=== PATIENT | male | born 1980 | race Hispanic/Latino ===

== ENCOUNTER 2021-06-28 15:43 | Emergency (ER) | payer SELFPAY ==
--- NOTE | 2021-06-28 16:01 | Emergency Department Report ---
ED Psych HPI - General Chief Complaint: Psych Stated Complaint: SUICIDAL IDEATIONS Time Seen by Provider: 06/28/21 15:56 Source: patient, EMS Mode of arrival: Ambulatory - History of Present Illness Initial Comments: Patient is 40 years old male with no significant past medical history. Patient brought to the emergency room via EMS from home for mental health evaluation. EMS stated that police was arrived before them. EMS stated that patient friend called police and informed them that he has been depressed and has not been seen recently and they need to check on him. EMS reported that when police arrived to his home they asked him if he wanted to kill himself he replied to them that if he can kill me that would be great. Upon arrival to the ER patient looks really depressed and pauses for long time before he answer questions. When asked about suicidal ideation patient refused to answer the questions. He denied visual or auditory hallucination. MD Complaint: suicidal ideation, feels depressed -: unknown Associated Psychiatric Symptoms: depression, suicidal ideation Quality: constant Associated Symptoms: denies other symptoms Treatments Prior to Arrival: none - Related Data Previous Rx's Medication Instructions Recorded Last Taken Type Escitalopram Oxalate [Lexapro] 5 mg PO DAILY 30 Days #30 06/29/21 Unknown Rx traZODone [Desyrel] 50 mg PO QHS 30 Days #30 tab 06/29/21 Unknown Rx Allergies Allergy/AdvReac Type Severity Reaction Status Date / Time No Known Allergies Allergy Verified 06/29/21 12:15 ED Review of Systems ROS: Stated complaint: SUICIDAL IDEATIONS Other details as noted in HPI Comment: All other systems reviewed and negative Constitutional: denies: chills, fever Respiratory: denies: cough, shortness of breath, SOB with exertion, SOB at rest Cardiovascular: denies: chest pain, palpitations Gastrointestinal: denies: abdominal pain, nausea, vomiting, diarrhea, constipation, hematemesis, melena, hematochezia Musculoskeletal: denies: back pain Neurological: denies: headache, weakness, numbness, paresthesias, confusion, abnormal gait Psychiatric: depression. denies: auditory hallucinations, visual hallucinations, homicidal thoughts ED Past Medical Hx - Medications Home Medications: Home Medications Medication Instructions Recorded Confirmed Last Taken Type Escitalopram Oxalate [Lexapro] 5 mg PO DAILY 30 Days #30 06/29/21 Unknown Rx traZODone [Desyrel] 50 mg PO QHS 30 Days #30 tab 04/19/22 Unknown Rx ED Physical Exam - General Limitations: No Limitations General appearance: alert, other (looks depressed) - Head Head exam: Present: atraumatic, normocephalic, normal inspection - Eye Eye exam: Present: normal appearance - ENT ENT exam: Present: normal exam, normal orophraynx, mucous membranes moist - Neck Neck exam: Present: normal inspection, full ROM. Absent: tenderness, meningismus - Respiratory Respiratory exam: Present: normal lung sounds bilaterally - Cardiovascular Cardiovascular Exam: Present: regular rate, normal rhythm, normal heart sounds - GI/Abdominal GI/Abdominal exam: Present: soft, normal bowel sounds. Absent: distended, tenderness, guarding, rebound, rigid, organomegaly, mass, bruit, pulsatile mass, hernia - Extremities Exam Extremities exam: Present: normal inspection, full ROM, normal capillary refill. Absent: tenderness - Back Exam Back exam: Present: normal inspection, full ROM. Absent: CVA tenderness (R), CVA tenderness (L) - Neurological Exam Neurological exam: Present: alert, oriented X3, CN II-XII intact, normal gait, reflexes normal. Absent: motor sensory deficit - Psychiatric Psychiatric exam: Present: depressed. Absent: homicidal ideation - Skin Skin exam: Present: warm, intact, normal color ED Course Vital Signs 06/28/21 06/28/21 06/29/21 15:48 22:00 06:04 Temperature 98.4 F 98.6 F Pulse Rate 81 71 Respiratory 16 18 18 Rate Blood Pressure 147/91 129/82 [Left] O2 Sat by Pulse 99 96 97 Oximetry 06/29/21 06/29/21 06/29/21 09:03 10:00 14:30 Temperature 98.2 F 98.2 F Pulse Rate 68 72 Respiratory 18 16 Rate Blood Pressure 140/90 140/88 [Left] O2 Sat by Pulse 98 99 99 Oximetry ED Medical Decision Making - Lab Data Result diagrams: 06/28/21 17:06 06/28/21 17:06 - Medical Decision Making Patient is 40 years old male with no significant past medical history. Patient brought to the emergency room via EMS from home for mental health evaluation. EMS stated that police was arrived before them. EMS stated that patient friend called police and informed them that he has been depressed and has not been seen recently and they need to check on him. EMS reported that when police arrived to his home they asked him if he wanted to kill himself he replied to them that if he can kill me that would be great. Upon arrival to the ER patient looks really depressed and pauses for long time before he answer questions. When asked about suicidal ideation patient refused to answer the questions. He denied visual or auditory hallucination. Labs reviewed and is unremarkable however urinalysis and UDS still pending. Patient is medically cleared to be evaluated by psychiatric team. Critical care attestation.: If time is entered above; I have spent that time in minutes in the direct care of this critically ill patient, excluding procedure time. ED Disposition Clinical Impression: Suicidal ideation, Depression, Elevated glucose level Disposition: HOME / SELF CARE / HOMELESS Is pt being admited?: No Condition: Stable Instructions: Living With Depression, Suicidal Feelings: How to Help Yourself, Screening for Type 2 Diabetes Additional Instructions: Your glucose level was elevated during your evaluation today. Follow-up with a primary care doctor for evaluation and screening for diabetes. Follow-up with the psychiatric resources provided Professional and Agency Contacts To help [facility](03/10) [place] Crisis Line: Suicide Prevention Line: Crisis Text Line: Text START to 511887 Emergency: 911 Outpatient COMMUNITY Behavioral Health Resources: LUCY: [facility] [address] [place], [place] [address] [facility] [address] [place] [address] HENRIETTA: [facility] - [address] [place] [address] Monday thru Monday - 8am - 5pm SAL[place]: [facility] Address: [address], [place] [address] [facility] Address: [address] [place] [address] Monday thru Monday- 7am-2pm [facility] Address: [address] [place] [address] Monday thru Monday: 8:30AM-5PM OUTPATIENT MENTAL HEALTH RESOURCES [facility], [address], [place] [address] FACUNDO Brock MD: [address] [place] [address] [facility]: [address] [place] [address] [address] [facility] [place] [address] [phone] [facility]: [address] [facility] [address] [place] [address] [facility]: [address] [facility] [address] [facility] [id number] [facility]: [address] [place], [place] Naseem Rodriguez MD: [address] [facility] [id number] [facility]: [address] [place], [place] [id number] [phone] [place] CRISIS AND ACCESS LINE: * The [employer] Program [employer] goal is to take chronically homeless men and help them overcome their barriers, change them as human beings, making them productive and self- sufficient individuals. Each [employer] participant is housed at our facility for up to a year while they participate in transitional work (earning $7.40/hr for 30+ hours per week). All participants renounce dependency and remain drug and alcohol free. Personal support, case management, and workforce training is offered throughout the program. We also provide AA/NA Classes, GED classes, support in obtaining a food mobile driver's licenses, help setting up a bank account, and life skill preparation courses. IF A MAN IS COMMITTED TO BEING CLEAN, TO ADDRESSING THE PAST, AND TO WORKING, WE WILL HELP HIM GET A FIXED WING AIRCRAFT CREW CHIEF JOB, TRANSPORTATION AND PERMANENT HOUSING WITHIN A YEAR. [employer]! [address] [place], [place] [id number] [email or web address] HOMELESS RESOURCES: [facility] NEED HELP? If you are in need of help or know someone who does, please contact us at [email or web address] or call , or come to our offices at [address] [facility], [place] [address], Monday-Monday beginning at 8AM. [facility] Males only Admission at 7am Mon to Mon Address: [address] [place] [address] Client Engagement Center Regular program admission occurs Monday through Monday at 7:00 am and operates on a first come, first serve basis. Because we cant anticipate program availability in advance and program spots are in high demand, we recommend arriving early. Space fills up fast! Next steps can include: Assignment to a [facility] program bed Connection to and placement in a partner program, or Referral to a partner agency [facility]: [facility] Address: [address] [place] [address] How do I join the [facility] housing program? Our housing programs are offered based on availability. If you are looking to participate in our housing program, simply call [phone] to find out if we have available space. Since we do receive many calls, please allow up to 48 hours for one of our housing specialists to return your call. If we do not have vacancies, we suggest calling the [facility] hotline at 211 for additional housing options. [facility] Challenge[facility]ales only Admission at 4:30pm daily Address: [place] [address] [facility] Admission from 8am to 10am Daily No intake until 03/09/20 Address: [place] [address] Transitional Senior Living Providers: Clay Diop [phone] Address: [address] [place] [address] Lisa Benton [phone] [place] [address] Mr. Hopson: [phone] Ronak Corral [phone] Ms. Ricardo: [phone] Cheryl Carter [phone] Ms. Lam [phone] Raymundo Simons [facility] [phone] Ms. Castle: [phone] [facility] [phone] [facility]: [facility] [phone] PC Prescriptions: traZODone [Desyrel] 50 mg PO QHS 30 Days #30 tab Escitalopram Oxalate [Lexapro] 5 mg PO DAILY 30 Days #30 Referrals: [facility] [Provider Group] - 3-5 Days (Primary care) FELIX POWELL MD [Staff Physician] - 3-5 Days (Primary care) JORDON CELESTE MD [Primary Care Provider] - 3-5 Days
[2021-06-28 17:49] LABS: Basophils # (Auto) 0.1 K/mm3 (0.0-0.1); Eosinophils # (Auto) 0.2 K/mm3 (0.0-0.4); Eosinophils % (Auto) 2.8 % (0.0-4.3); Hematocrit 49.3 % (35.5-45.6); Hemoglobin 17.1 gm/dl (11.8-15.2); Lymphocytes # (Auto) 2.6 K/mm3 (1.2-5.4); Lymphocytes % (Auto) 32.2 % (13.4-35.0); Mean Corpuscular HGB Conc 35 % (32-34); Mean Corpuscular Volume 82 fl (84-94); Monocytes # (Auto) 0.6 K/mm3 (0.0-0.8); Monocytes % (Auto) 7.4 % (0.0-7.3); Platelet Count 215 K/mm3 (140-440); Red Blood Count 6.03 M/mm3 (3.65-5.03)
[2021-06-28 18:12] LABS: Alanine Aminotransferase 19 units/L (7-56); Albumin 4.5 g/dL (3.9-5); BUN/Creatinine Ratio 10; Bilirubin,Direct 0.2 mg/dL (0-0.2); Blood Urea Nitrogen 10 mg/dL (9-20); Calcium 9.4 mg/dL (8.4-10.2); Hemolysis Index 5
--- NOTE | 2021-06-29 11:19 | Consultation ---
History of Present Illness - Reason for Consult Consult date: 06/29/21 Reason for consult: mental health evaluation - History of Present Psychiatric Illness The patient is a 40 year old male with unknown psychiatric history. the patient was seen this morning. He present with constricted affect. The states he has been dealing with " all kinds of court stuff and unable to work." He states he was charged with aggravated stalking; he states someone was allegedly leaving toys at his ex home. The patient endorses being depressed but denies any current suicidal/homicidal ideation and denies hallucinations. PAST PSYCHIATRIC HISTORY: Diagnoses: Denies Suicide attempts or Self-harm behavior: Denies Prior psychiatric hospitalizations: Denies Substance Abuse history: Denies Previous psychiatric medications tried: Denies Outpatient treatment: Denies PAST MEDICAL HISTORY: None reported or document Family Psychiatric History: None reported or documented SOCIAL HISTORY Marital Status: Single Living Arrangements: Lives with mother Employment Status: Unemployed Access to guns/weapons: Denies Education: college History of Abuse: Denies Legal History: Yes REVIEW OF SYSTEMS Constitutional: Negative for weight loss ENT: Negative for stridor Respiratory: Negative for cough or hemoptysis All other systems reviewed and are negative MENTAL STATUS EXAMINATION General Appearance and Behavior: Age appropriate, good hygiene, wearing appropriate clothes. distracted, cooperative Cooperation: Psychomotor Behavior: Psychomotor normal Mood: Calm Affect and affective range: congruent with stated mood Thought Process:Goal directed Thought Content: Reality oriented Speech: Normal volume, Regular rate and rhythm Suicidal Ideation: Denies Homicidal Ideation: Denies Hallucinations: Denies Delusions: none elicited Impulse Control: impaired Insight and Judgment: Limited Memory: limited Attention: Distracted Orientation: alert and oriented Assessment and Plan (1) Major depressive disorder Treatment Plan Start Lexapro 5mg po daily Start Trazodone 50mg po QHS Continue home meds Sitter: refer to medical Medical: per primary Disposition:Do not recommend acute psychiatric inpatient treatment. [facility] will provide patient with psychiatric out patient resources. Will sign off. Thanks Case staffed with Dr. Peñaloza Medications and Allergies Medications and Allergies Allergies Allergy/AdvReac Type Severity Reaction Status Date / Time No Known Allergies Allergy Unverified 06/28/21 17:19 Home Medications Medication Instructions Recorded Confirmed Last Taken Type Escitalopram Oxalate [Lexapro] 5 mg PO DAILY 30 Days #30 06/29/21 Unknown Rx traZODone [Desyrel] 50 mg PO QHS 30 Days #30 tab 06/29/21 Unknown Rx Mental Status Exam - Vital signs Last Vital Signs Temp 98.2 F 06/29/21 09:03 Pulse 68 06/29/21 09:03 Resp 18 06/29/21 09:03 BP 140/90 06/29/21 09:03 Pulse Ox 99 06/29/21 10:00 Results Result Diagrams: 06/28/21 17:06 06/28/21 17:06 Abnormal lab results 06/28/21 06/28/21 Range/Units 17:06 17:06 RBC 6.03 H (3.65-5.03) M/mm3 Hgb 17.1 H (11.8-15.2) gm/dl Hct 49.3 H (35.5-45.6) % MCV 82 L (84-94) fl MCHC 35 H (32-34) % RDW 13.0 L (13.2-15.2) % Rabun % (Auto) 7.4 H (0.0-7.3) % Glucose 256 H (75-100) mg/dL All other labs normal.
[2021-06-29] MEDS ORDERED: traZODone 50 MG TAB PO ONE (11:20)
[2021-06-29] MEDS ORDERED: ESCITALOPRAM 10 MG TAB PO SCH (12:00)
--- NOTE | 2021-06-29 13:57 | Emergency Department Report ---
Blank Doc - Documentation Documentation: 40-year-old male with major depression disorder cleared by mental [facility] for d ischarge. Patient does have hyperglycemia without documented history of diabetes. Outpatient follow-up with PMD advised
[2021-06-29 14:32] VITALS: BP 140/88
== END 2021-06-29 14:32 | disposition home or self-care (01) ==
LOC: ED 15:43 → EEVIPCON 15:43 → ED 06-29 14:32
DX: R45.851 Suicidal ideations (principal); F32.A Depression, unspecified; Z20.822 Contact with and (suspected) exposure to COVID-19
CPT/HCPCS: 80048; 80076; 85025; 99284; U0003; 80320; G0480